=== PATIENT | male | born 1935 | race Caucasian/White ===

== ENCOUNTER 2016-11-13 08:01 | Day surgery (SDC) | payer MEDICARE, OTHER ==
[2016-11-13] VITALS (11 sets, daily range): BP systolic 141–165; BP diastolic 78–106; PULSE 69–83; TEMP 97.8
[~2016-11-13] VITALS: Ht 172.8 cm; Wt 68.1 kg
[2016-11-13] MEDS ORDERED: PLENDIL10 MG PO (08:10)
[2016-11-13] MEDS ORDERED: GLUCOSAMIN 500 PO (08:11)
[2016-11-13 08:34] LABS: HEMATOCRIT 41.3 % (42.0-52.0); HEMOGLOBIN 13.7 g/dl (13.5-18.0); MEAN CELL VOLUME 93 fl (80.0-100.0); MEAN CORPUSCULAR HEMOGLOBIN 31 pg (27.0-31.0); MEAN CORPUSCULAR HGB CONC 33 g/dl (33.0-37.0); MEAN PLATELET VOLUME 9.6 fl (7.4-10.4); PLATELET COUNT 309 K/mm3 (130-400); RED BLOOD COUNT 4.43 M/mm3 (4.20-5.60); REDCELL DISTRIBUTION WIDTH-CV 12.9 % (11.5-14.5); WHITE BLOOD COUNT 8.1 K/mm3 (4.8-10.8)
[2016-11-13 08:35] LABS: INR 0.9 (0.8-3.0); PROTHROMBIN TIME 10.4 SECONDS (9.7-12.8)
[2016-11-13 08:40] LABS: CALCIUM 9.6 mg/dL (8.4-10.2); CREATININE, serum 1.63 mg/dL (0.66-1.25); POTASSIUM 3.9 mmol/L (3.4-5.0)
== END 2016-11-13 16:45 | disposition home or self-care (01) ==
LOC: COL.RAD 08:01
PROVIDERS: Internal Medicine Cardiovascular Disease
DX: I35.0 Nonrheumatic aortic (valve) stenosis (principal); I07.1 Rheumatic tricuspid insufficiency
CPT/HCPCS: C1760; C1769; C1894; J2250; J3010; Q9967

== ENCOUNTER → 2016-12-30 | Outpatient (CLI) | payer MEDICARE, OTHER ==
[~2016-12-30] MED LIST: GLUCOSAMIN 500 PO; PLENDIL10 MG PO
== END ==
LOC: COL.VAS 12:45
DX: Z01.818 Encounter for other preprocedural examination (principal); I35.0 Nonrheumatic aortic (valve) stenosis; R94.2 Abnormal results of pulmonary function studies; I65.23 Occlusion and stenosis of bilateral carotid arteries

== ENCOUNTER 2017-03-31 14:17 | Outpatient (RCR) | payer MEDICARE, OTHER | END 2017-06-15 | disposition home or self-care (01) | LOC: COL.CR | DX: Z48.812 Encounter for surgical aftercare following surgery on the circulatory system (principal); Z95.2 Presence of prosthetic heart valve; I35.0 Nonrheumatic aortic (valve) stenosis ==

== ENCOUNTER 2017-12-02 12:17 | Inpatient (IN) | payer MEDICARE, OTHER ==
[~2017-12-02] VITALS: Ht 172.8 cm; Wt 70.8 kg
[2018-01-25] MEDS ORDERED: ARICEPT ODT5 MG PO (07:18)
[2018-01-25] MEDS ORDERED: ASPIRIN 30300 MG/SUP RC (07:18)
[2018-01-25] MEDS ORDERED: GLUCOSAMINE & C1 TAB PO (07:19)
[2018-01-25] MEDS ORDERED: LIPITOR20 MG PO (07:20)
[2018-01-25] MEDS ORDERED: TOPROL XL 50MG50 MG PO (07:20)
[2018-01-25] MEDS ORDERED: IRON18 MG1 PO (07:20)
[2018-01-25] MEDS ORDERED: VITAMIN C500 MG PO (07:21)
[2018-01-25] MEDS ORDERED: NAMENDA 10MG TA10 MG PO (07:21)
[2018-01-25] MEDS ORDERED: NITROSTAT0.3 MG SL (07:21)
[2018-01-26] VITALS (9 sets, daily range): BP systolic 124–173; BP diastolic 48–75; PULSE 26–60; TEMP 97.7–98
[2018-01-26] MEDS ORDERED: ASPIRIN E.C. 8181 MG PO (07:25)
[2018-01-26 16:21] LABS: HEMATOCRIT 34.4 % (42.0-52.0); HEMOGLOBIN 11.3 g/dl (13.5-18.0)
[2018-01-27 04:26] VITALS: BP 143/65; PULSE 65; TEMP 98.5
[2018-01-27 06:19] LABS: HEMATOCRIT 26.7 % (42.0-52.0); HEMOGLOBIN 8.9 g/dl (13.5-18.0)
[2018-01-27 08:03] VITALS: BP 144/56; PULSE 67; TEMP 97.8
[2018-01-27 11:04] VITALS: BP 119/47; PULSE 60; TEMP 97.8
[2018-01-27 13:05] LABS: HEMATOCRIT 27.3 % (42.0-52.0); HEMOGLOBIN 8.9 g/dl (13.5-18.0)
[2018-01-27 15:27] VITALS: BP 126/49; PULSE 61; TEMP 98.4
[2018-01-27 19:40] VITALS: BP 131/52; PULSE 64; TEMP 99.6
[2018-01-28 00:32] VITALS: BP 132/77; PULSE 66; TEMP 98
[2018-01-28 04:21] VITALS: BP 130/56; PULSE 63; TEMP 98.5
[2018-01-28] MEDS ORDERED: ASPI325T6 PO (07:31)
[2018-01-28] MEDS ORDERED: ROXICODONE 55 MG/TAB PO (07:32)
[2018-01-28] MEDS ORDERED: NORCO 325 MG-7.1 TAB PO (07:32)
[2018-01-28 08:00] VITALS: BP 149/58; PULSE 67; TEMP 97.8
[2018-01-28 11:18] VITALS: BP 132/44; PULSE 65; TEMP 98.1
== END 2018-01-28 14:05 | disposition home or self-care (01) | DRG 468 ==
LOC: JCC 01-26 06:32
PROVIDERS: Nurse Practitioner; Orthopaedic Surgery
PROC: 0SP90JZ Removal of Synthetic Substitute from Right Hip Joint, Open Approach (ICD-10-PCS; 2018-01-26)
PROC: 0SR90J9 Replacement of Right Hip Joint with Synthetic Substitute, Cemented, Open Approach (ICD-10-PCS; principal; 2018-01-26 10:15)
DX: T84.030A Mechanical loosening of internal right hip prosthetic joint, initial encounter (principal); I10 Essential (primary) hypertension
CPT/HCPCS: A4314; A9284; C1776; J0690; J1100; J1885; J2250; J2370; J2405; J2704; J3010; J7120

== ENCOUNTER → 2018-01-19 | Outpatient (CLI) | payer MEDICARE, OTHER ==
[2018-01-19 12:23] LABS: HIV 1/2 Antibodies Non-Reactive; HIV-1p24 Antigen Non-Reactive
== END ==
LOC: COL.LAB 11:14
PROVIDERS: Orthopaedic Surgery
DX: Z01.812 Encounter for preprocedural laboratory examination (principal)

== ENCOUNTER 2018-01-30 12:33 | Emergency (ER) | payer MEDICARE, OTHER ==
[~2018-01-30] VITALS: Ht 172.7 cm; Wt 70.5 kg
[~2018-01-30 12:33] MED LIST changes: +ARICEPT ODT5 MG PO; +ASPI325T6 PO; +ASPIRIN 30300 MG/SUP RC; +ASPIRIN E.C. 8181 MG PO; +GLUCOSAMINE & C1 TAB PO; +IRON18 MG1 PO; +LIPITOR20 MG PO; +NAMENDA 10MG TA10 MG PO; +NITROSTAT0.3 MG SL; +NORCO 325 MG-7.1 TAB PO; +ROXICODONE 55 MG/TAB PO; +TOPROL XL 50MG50 MG PO; +VITAMIN C500 MG PO
[2018-01-30 12:35] VITALS: BP 147/60; PULSE 73; TEMP 97.8
== END 2018-01-30 14:09 | disposition home or self-care (01) ==
LOC: COL.ER 12:33
DX: T81.89XA Other complications of procedures, not elsewhere classified, initial encounter (principal); I10 Essential (primary) hypertension; N40.0 Benign prostatic hyperplasia without lower urinary tract symptoms; Z90.79 Acquired absence of other genital organ(s); Z96.641 Presence of right artificial hip joint; Z79.82 Long term (current) use of aspirin